=== PATIENT | female | born 1985 | race Caucasian/White ===

== ENCOUNTER 2020-07-02 06:56 | Emergency (ER) | payer OTHER, SELFPAY ==
--- NOTE | 2020-07-02 06:45 | RT.EKG_ITS ---
APPROVED REPORT Exam: Resting ECG Patient Location: E HR:85 bpm ECG Measurements Heart Rate 85 AXIS ID 146 P 47 QRSd 100 QRS 29 QT 353 T 17 QTc 421 Conclusion Sinus rhythm...normal P axis, V-rate 60- 99
[2020-07-02 07:02] VITALS: BP 174/112; PULSE 86; RESP 18; TEMP 36.4; O2SAT 99
[2020-07-02 07:09] VITALS: RESP 18
--- NOTE | 2020-07-02 07:14 | W.ED.GENAD ---
Discharge Plan Disposition Patient Disposition: HOME Condition: Stable Discharge Details Clinical Impression: Heart palpitations, Anxiety Primary Care Provider: Genna Jacob ED Provider: Jeronimo Luciano Home Meds and New Rx's Prescriptions: New alprazolam [Xanax] 1 mg tablet 1 mg PO ONCE Qty: 7 RF: 0 Continued fluoxetine 10 mg Tablet 10 mg PO DAILY RF: 0 Discharge Instructions Instructions: Heart Palpitations (ED) Additional Instructions: Home to rest today. Continue your plans to follow-up for a sleep study. We will ask our care management to arrange a follow-up for you in clinic in 1 week's time. You may trial the use of Xanax for anxiety attack if needed once per day. Not to be used if attempting to conceive or . Your blood work and chest x-ray today were within normal limits and reassuring. Return for any acute concerns. Discharge Data Discharge Date/Time-TO BE ENTERED AT DEPARTURE: 07/02/20 09:15 Medical Decision Making <Gerard Frausto MD - Last Filed: 07/02/20 07:21> 34 yo female with hx of anxiety who comes in feeling anxious over the past two weeks and the last day has felt her heart skipping beats and a tingling sensation down the left arm. Denies any prior cardiac history other than pvcs and doesn't smoke or use drugs and drinks socially. She denies fevers, cough, abdominal pain, diaphoresis, n/v. She arrives HD stable appearing anxious with no murmurs, clear lungs, no calf tenderness and normal neurovascular exam. Her symptoms seem most consistent with anxiety. Her heart score is 2, will send troponin. Wells score low, will send troponin. No tearing back pain and normal vascular exam so doubt dissection. Will also evaluate for possible electrolyte abnormalities though I suspect her primary cause of her symptoms is anxiety. She drove herself here so declined ativan. pt signed out to oncoming provider pending labs and xray results Differential Diagnosis Differential Diagnosis: anxiety, electrolyte abnormalities, acs ECG Data Attestation: I personally reviewed and interpreted this ECG (s) as follows: Prior ECG tracings: not available for review Interpretation: sinus rhythm, rate of 85, pr 146, qtc [address] t wave ischemic findings <Jeronimo Luciano MD - Last Filed: 07/02/20 10:22> Received signout on the patient from Dr. Fruasto. Please see his note regarding details of the initial presentation, exam, plan of care. Patient remains somewhat anxious but comfortable. She accepted 0.5 mg of Ativan with good anxiolysis. Laboratories including D-dimer and troponin are unremarkable. Chest x-ray without acute findings. Patient with a self-described long history of PVCs for which she has seen cardiology and undergone monitoring. She has a great deal of stress due to family, work, school. We discussed that she has recently weaned off clonazepam, but may benefit from a small number of short acting benzodiazepines such as Xanax, which I will prescribe to her. She understands she is not to use benzodiazepines if trying to conceive. We will ask complex care nurse practitioner to arrange a follow-up for her in the [place] clinic. She is stable for discharge at this time. Lab Data Lab results reviewed: Yes I reviewed the patient's lab results. Labs: Laboratory Results - last 24 hr 07/02/20 07/02/20 07/02/20 07:15 07:35 07:35 WBC 8.16 RBC 5.01 Hgb 14.5 Hct 44.5 MCV 88.8 MCH 28.9 MCHC 32.6 RDW 12.7 Plt Count 236 MPV 10.8 Immature Gran % 0.2 Neutrophils % 67.2 Lymphocytes % 23.8 Monocytes % 6.6 Eosinophils % 1.7 Basophils % 0.5 Nucleated RBC % 0 Absolute Neutrophils 5.48 Absolute Lymphocytes 1.94 Absolute Monocytes 0.54 Absolute Eosinophils 0.14 Absolute Basophils 0.04 D-Dimer Sodium 139 Potassium 4.3 Chloride 103 Carbon Dioxide 30.2 Anion Gap 5.8 BUN 10 Creatinine 0.94 Estimated GFR/1.73 m2 >= 60.00 Glucose 101 Calcium 9.1 Magnesium 1.8 Total Bilirubin 0.6 AST 15 ALT 29 Alkaline Phosphatase 83 Troponin I Cancelled Total Protein 7.6 Albumin 3.5 07/02/20 07/02/20 07:35 07:35 WBC RBC Hgb Hct MCV MCH MCHC RDW Plt Count MPV Immature Gran % Neutrophils % Lymphocytes % Monocytes % Eosinophils % Basophils % Nucleated RBC % Absolute Neutrophils Absolute Lymphocytes Absolute Monocytes Absolute Eosinophils Absolute Basophils D-Dimer 268 Sodium Potassium Chloride Carbon Dioxide Anion Gap BUN Creatinine Estimated GFR/1.73 m2 Glucose Calcium Magnesium Total Bilirubin AST ALT Alkaline Phosphatase Troponin I < 0.05 Total Protein Albumin HPI <Gerard Frausto MD - Last Filed: 07/02/20 07:21> General Mode of arrival: ambulatory. Date/Time Provider Initiated Documentation: 07/02/20 06:57. Limitations to Documentation: no limitations. Information obtained by: patient. History of Present Illness 34 year old F presents to the emergency department with the chief complaint of anious and heart skipping, described as moderate, Patient started experiencing this week(s) (2) and it has been constant. No relieving factors improve symptom(s), No exacerbating factors reported . Related Data Home Medications Medication Instructions Recorded Confirmed alprazolam [Xanax] 1 mg PO ONCE #7 tab 07/02/20 fluoxetine 10 mg PO DAILY 07/02/20 07/02/20 Previous Rx's Medication Instructions Recorded alprazolam [Xanax] 1 mg PO ONCE #7 tab 07/02/20 Allergies Allergy/AdvReac Type Severity Reaction Status Date / Time Penicillins Allergy Hives Unverified 07/02/20 07:07 General Stated Complaint: Anxiety LADONNA: 3 Review of Systems <Gerrad Frausto MD - Last Filed: 07/02/20 07:21> All systems reviewed & are unremarkable except as noted in HPI and below Constitutional Constitutional: Denies chills, Denies fever(s) and Denies weakness Cardiovascular Cardiovascular: Denies dyspnea Respiratory Respiratory: Denies cough and Denies dyspnea Gastrointestinal Gastrointestinal: Denies nausea and Denies vomiting Neurologic Neurologic: Denies weakness [facility] <Gerard Frausto MD - Last Filed: 07/02/20 07:21> Social History Smoking/Tobacco Use Status: Never Smoking risk assessment performed?: Yes Alcohol Intake: current Alcohol Intake frequency: holidays/special occasions only Drug use: Never Substance use type: does not use Do you feel safe at home: Yes Do you feel safe in your relationship?: Yes Exam <Gerard Frausto MD - Last Filed: 07/02/20 07:21> Const General: other (anxious) Orientation: alert HENAR Head: normal to inspection Ears: external ears normal General nose exam: external nose normal Mouth: moist mucous membranes Eyes General: appearance normal, both eyes and all related structures Neck Neck: normal visual inspection Resp Effort & Inspection: normal respiratory effort and able to speak in complete sentences Cardio Rate: regular rate Skin General skin exam: no rashes or lesions noted Neuro General: patient alert and patient oriented x3 Extrem General: normal to inspection Psych Mental Status: mental status grossly normal Course <Gerard Frausto MD - Last Filed: 07/02/20 07:21> Vital Signs Vital signs: Vital Signs Temperature 36.4 C L 07/02/20 07:02 Pulse 86 07/02/20 07:02 Respiratory Rate 18 07/02/20 07:02 Blood Pressure 174/112 H 07/02/20 07:02 Pulse Oximetry 99 07/02/20 07:02 Temperature 36.4 C L 07/02/20 07:02 Temperature Source Temporal Artery Scan 07/02/20 07:02 Pulse 86 07/02/20 07:02 Respiratory Rate 18 07/02/20 07:09 Respiratory Effort Non-Labored 07/02/20 07:09 Respiratory Depth Normal 07/02/20 07:09 Respiratory Pattern Normal 07/02/20 07:09 Blood Pressure 174/112 H 07/02/20 07:02 Blood Pressure Position Sitting 07/02/20 07:02 Pulse Oximetry 99 07/02/20 07:02 Oxygen Delivery Method Room Air 07/02/20 07:02 Oxygen Flow Rate 0 07/02/20 07:02 Sign Out <Gerard Frausto MD - Last Filed: 07/02/20 07:21> Sign Out Data: Sign Out Comment: anxious and palpitations, labs and cxr Last updated by Gerard Frausto MD at 07/02/20 07:22
[2020-07-02 07:50] LABS: Abs Immature Grans 0.02 10^3/uL (0.0-0.06); Absolute Basophil Count 0.04 10^3/uL (0.0-0.2); Absolute Eosinophil Count 0.14 10^3/uL (0.0-0.7); Absolute Lymphocyte Count 1.94 10^3/uL (1.2-3.4); Absolute Monocyte Count 0.54 10^3/uL (0.1-0.8); Absolute Neutrophil Count 5.48 10^3/uL (1.2-6.7); Basophils % 0.5; Eosinophils % 1.7; HCT 44.5 % (36.0-46.0); HGB 14.5 g/dL (11.2-15.7); Immature Grans % 0.2; Lymphocytes % 23.8; MCH 28.9 pg (27.0-33.0); MCHC 32.6 % (32.0-36.0); MCV 88.8 fL (80-95); MPV 10.8 fL (8.0-11.0); Monocytes % 6.6; Neutrophils % 67.2; Nucleated RBC 0 %; Platelet Count 236 10^3/uL (130-400); RBC 5.01 10^6/uL (3.93-5.22); RDW 12.7 % (11.7-14.6); RDW-SD 41.1 fL; WBC 8.16 10^3/uL (4.4-10.8)
[2020-07-02 08:00] LABS: ALT 29 U/L (14-59); AST 15 U/L (15-37); Albumin 3.5 g/dL (3.4-5.0); Alkaline Phosphatase 83 U/L (46-116); Anion Gap 5.8 mmol/L (3-11); BUN 10 mg/dL (7-18); Bilirubin, Total 0.6 mg/dL (0.2-1.0); CO2 30.2 mmol/L (21.0-32.0); CREATININE 0.94 mg/dL (0.55-1.02); Calcium 9.1 mg/dL (8.5-10.1); Chloride 103 mmol/L (98-107); Glucose 101 mg/dL (74-106); Magnesium 1.8 mg/dL (1.8-2.4); Potassium 4.3 mmol/L (3.5-5.1); Sodium 139 mmol/L (136-145); Total Protein 7.6 g/dL (6.4-8.2)
--- NOTE | 2020-07-02 08:01 | DI.RAD_ITS ---
EXAM: XR CHEST 2V PA LATERAL CLINICAL HISTORY: chest pain. TECHNIQUE: 2D digital imaging was performed. COMPARISON: No exams were available for comparison FINDINGS: Heart size is slightly prominent. Mediastinum is not widened. Lungs are clear. No infiltrates nor pleural effusions. No pneumothorax. No pulmonary edema IMPRESSION: No acute pulmonary findings.Mild cardiomegaly. DATA REPOSITORY: RADIATION DOSE DELIVERED:
[2020-07-02 08:08] LABS: Troponin I < 0.05 ng/mL (<0.06)
[2020-07-02] MEDS: LORazepam 2 MG/ML VIAL 0.5 MG IVP (08:19)
[2020-07-02 08:39] LABS: D-Dimer 268 ng/mlFEU (<500)
--- NOTE | 2020-07-02 13:48 | NUR.NOTE ---
Referral, provider note, lab results, x/r reading and EKG faxed to [facility] for f/u. [phone].Nursing Note:
== END 2020-07-02 09:15 | disposition home or self-care (01) ==
PROVIDERS: Emergency Medicine; Emergency Provider Emergency Medicine; PCP Nurse Practitioner Family
DX: R00.2 Palpitations (principal); F41.9 Anxiety disorder, unspecified
CPT/HCPCS: 36415; 80053; 81025; 93005; 96374; 99285; 71046; 83735; 84484; 85025; 85379; 93010; 99284; J2060

== ENCOUNTER 2020-11-30 16:37 | Emergency (ER) | payer OTHER, SELFPAY ==
--- NOTE | 2020-11-30 16:48 | W.ED.GENAD ---
Discharge Plan Disposition Patient Disposition: HOME Condition: Stable Discharge Details Clinical Impression: Ankle pain Primary Care Provider: Genna Jacob ED Provider: Jim Cintron Home Meds and New Rx's Prescriptions: Continued fluoxetine 10 mg capsule 20 mg PO DAILY RF: 0 enalapril maleate 5 mg tablet 5 mg PO DAILY AM RF: 0 clonazepam 0.5 mg tablet 0.5 mg PO DAILY AM RF: 0 labetalol 100 mg tablet 100 mg PO BID RF: 0 Discharge Instructions Instructions: Ankle Sprain (ED) Additional Instructions: X-ray reveals soft tissue swelling but no acute fracture identified. Surya wrap as tolerated. Be sure to wear more supportive footwear. Rest, elevate, cool and/or warm compresses every 2 hours for 20s. [id number] Tylenol and/or Motrin as directed for discomfort. Please watch for new or worsening symptoms and return to the ER for any concerns. Lastly, I do recommend contacting your primary care provider outpatient reevaluation if symptoms persist. It sounds as though this been going on for several months and if this does persist outpatient referral to orthopedics is certainly reasonable. Medical Decision Making This is a 35-year-old female reports vascular history of hypertension, morbid obesity, right ankle pain and swelling intermittent for many months. Worse after being on her feet for long periods of time. Does report increased activity, walking up and down stairs, wearing shoes that are new, and currently wearing sandals. This appears to be more musculoskeletal in nature. I do question if there is also some dependent edema at baseline. Negative Homans' sign, based upon the evaluation extremely low suspicion for PE. There is no erythema or warmth, extremely low suspicion for infectious process. Although there was no obvious trauma she does question if she could have stepped awkwardly. Will obtain x-ray for further evaluation although low suspicion for acute fracture and/or dislocation. I do question if there could be baseline soft tissue injury that she has exacerbation Of time. Patient and family are comfortable with this plan. She is able to ambulate without antalgic gait. X-ray obtained and read by radiology as soft tissue swelling along the lateral malleolus, no acute fracture identified. Discussed x-ray findings with patient and family. Discussed disposition. They will use an Surya wrap at home for compression. We discussed conservative therapy of resting, elevating, cool and/or warm compresses, and outpatient reevaluation. [id number] anti-inflammatory such as Motrin as directed. Encouraged to return to the ER for new or worsening symptoms. Medical Records Medical records reviewed: Yes I reviewed the patient's medical records. Imaging Data Radiologic Study: Attestation: I personally reviewed and interpreted this imaging study as follows: Imaging: X-Ray Radiologist's impression: Right ankle, soft tissue swelling along the lateral malleolus. No acute fracture identified. HPI General Mode of arrival: ambulatory. Date/Time Provider Initiated Documentation: 11/30/20 16:38. Limitations to Documentation: no limitations. Information obtained by: patient. HPI Narrative: This is a 35-year-old female, past medical history of hypertension, morbid obesity, presenting to the ER for right ankle pain and swelling. She states intermittent swelling and discomfort for several months, has never had this evaluated. Reports that when she is on her feet for a prolonged period of time typically she does have some swelling and increased pain. She does question if she could have stepped awkwardly there is no obvious trauma. She does note that she was up and down stairs more so recently and she is also wearing new shoes are not very supportive. She denies any fever, chest pain, shortness of breath, history of DVT or PE, history of smoking, calf pain, numbness, tingling, weakness. She has occasionally taken Motrin for her discomfort. Denies any skin rash. Related Data Home Medications Medication Instructions Recorded Confirmed clonazepam 0.5 mg PO DAILY AM 11/30/20 11/30/20 enalapril maleate 5 mg PO DAILY AM 11/30/20 11/30/20 fluoxetine 20 mg PO DAILY 11/30/20 11/30/20 labetalol 100 mg PO BID 11/30/20 11/30/20 Allergies Allergy/AdvReac Type Severity Reaction Status Date / Time Penicillins Allergy Hives Unverified 11/30/20 16:53 General LADONNA: 3 Review of Systems Constitutional Constitutional: Denies fever(s) and Denies weakness Cardiovascular Cardiovascular: Denies chest pain and Denies dyspnea Respiratory Respiratory: Denies cough and Denies dyspnea Musculoskeletal Musculoskeletal: Denies deformity, Reports arthralgias, Reports joint swelling, Denies numbness, Denies stiffness and Denies tingling Integumentary/Breasts Skin/Breast: Denies erythema and Denies rash Neurologic Neurologic: Denies numbness, Denies tingling and Denies weakness [facility] Social History Smoking/Tobacco Use Status: Never Smoking risk assessment performed?: Yes Alcohol Intake: current Alcohol Intake frequency: holidays/special occasions only Drug use: Never Substance use type: does not use Do you feel safe at home: Yes Do you feel safe in your relationship?: Yes Exam Const General: cooperative, healthy appearing, comfortable and no acute distress Orientation: alert and awake [facility] Head: normal to inspection, normocephalic and atraumatic Eyes General: appearance normal, both eyes and all related structures Conjunctivae: conjunctivae normal Neck Neck: normal visual inspection, trachea midline and supple Resp Effort & Inspection: normal respiratory effort and able to speak in complete sentences Cardio Rate: regular rate Rhythm: regular rhythm Skin General skin exam: no rashes or lesions noted Neuro General: patient alert, patient awake, moves all extremities and no focal motor deficits Sensory Exam: no sensory deficits noted Extrem General: full ROM and capillary refill normal Right lower extremity: full ROM, normal capillary refill, knee Details: normal to inspection and knee ligament exam normal; no tenderness and no swelling, lower leg Details: normal to inspection and no edema; no erythema, no tenderness, no localized swelling and no palpable cords, ankle Details: abnormal to inspection, tenderness, swelling, normal ROM and ecchymosis; no crepitus and foot Details: normal capillary refill and tendon exam Other: Right foot and ankle, there is diffuse mild swelling across the entire ankle with minimal ecchymosis to the. There is diffuse mild discomfort but there is no bony point tenderness. Along the anterior inferior aspect of the ankle just to the dorsum of the foot there is also some soft tissue swelling although there is no erythema, warmth, ecchymosis or tenderness here. +5 strength. Normal capillary refill. normal dorsalis pedal pulse. Neuro, vascular, tendon intact. Negative Homans Psych Appearance: grossly normal Mental Status: mental status grossly normal
[2020-11-30 16:49] VITALS: BP 165/101; PULSE 77; RESP 18; TEMP 36.5; O2SAT 99
--- NOTE | 2020-11-30 18:00 | DI.RAD_ITS ---
Exam(s) XR ANKLE RT COMPLETE EXAM: XR ANKLE RT COMPLETE CLINICAL HISTORY: pain/swelling TECHNIQUE: COMPARISON: No exams were available for comparison FINDINGS: Three views were obtained. The ankle mortise is well maintained. There are mild degenerative change s of the joints of the ankle. There is no evidence of acute fracture or dislocation. Mild soft tiss ue swelling is noted in a diffuse pattern. IMPRESSION: RADIATION DOSE DELIVERED: Total DLP
[2020-11-30 18:20] VITALS: BP 148/83; PULSE 74
--- NOTE | 2020-11-30 18:29 | DI.VRAD_ITS ---
PROCEDURE INFORMATION: Exam: XR Right Ankle Exam date and time: 11/30/2020 6:20 PM Age: 35 years old Clinical indication: Pain; Ankle; Right TECHNIQUE: Imaging protocol: XR Right ankle. Views: 3 or more views. COMPARISON: No relevant prior studies available. FINDINGS: Bones/joints: Plantar and Achilles calcaneal spurs. Cortical irregularity distal tip of the fibula has appearance more suggestive of an old fracture rather than acute trauma. Irregularity of the distal tibia and fibula in the region of the syndesmosis, consistent with old syndesmotic injury Soft tissues: Soft tissue swelling along the lateral malleolus IMPRESSION: Soft tissue swelling along the lateral malleolus. No acute fracture identified. Dictated and Authenticated by: Vale Gonzalez MD. Ordering:DAISY Fernandez MD
== END 2020-11-30 18:45 | disposition home or self-care (01) ==
PROVIDERS: Emergency Provider Physician Assistant; PCP Nurse Practitioner Family
DX: M25.571 Pain in right ankle and joints of right foot (principal); M25.471 Effusion, right ankle; E66.01 Morbid (severe) obesity due to excess calories; Z68.44 Body mass index [BMI] 60.0-69.9, adult
CPT/HCPCS: 99283; 73610